=== PATIENT | male | born 1940 | race Caucasian/White ===

== ENCOUNTER → 2017-09-23 | Outpatient (CLI) | payer OTHER ==
[~2017-09-23] MED LIST: ASPI-496 PO; DHA PO; DONE10TA7 PO; FINA5TAB4 PO; FOLIC ACID PO; NAPR220T77 PO; NIAC500T4 PO; NITR100C PO; OMEG1CAP6 PO; RASA0.5T PO; SIMV20TA3 PO; TAMS0.4C2 PO; VITA150T PO
== END | disposition home or self-care (01) ==
LOC: CFH 06:56
PROVIDERS: ATTEND Internal Medicine Cardiovascular Disease
DX: I35.8 Other nonrheumatic aortic valve disorders (principal); I25.9 Chronic ischemic heart disease, unspecified; Z95.0 Presence of cardiac pacemaker; Z95.1 Presence of aortocoronary bypass graft
CPT/HCPCS: 93306

== ENCOUNTER 2018-05-15 10:24 | Inpatient (IN) | payer MEDICARE, OTHER ==
[~2018-05-15] VITALS: Ht 185.4 cm; Wt 92.5 kg
--- NOTE | 2018-05-15 10:43 | NUR ---
First contact with pt. Pt and his reports that for the past 2-3 days he has been having trouble swallowing and a cough after eating/drinking anything. Pt states he has a hx of this and has had previous "esophageal surgeries" related to this. Pt denies pain/fever/N/V. Pt's resp even and unlabored, speaking in full sentences, no resp distress noted. Pt positioned for comfort in bed, continuous oxygen and BP monitors applied, all safety measures observed.
[2018-05-15] MEDS ORDERED: SELE5TAB2 PO (10:57)
[2018-05-15] MEDS ORDERED: CARV3.122 PO (10:57)
[2018-05-15] MEDS ORDERED: SPIR25TA5 PO (10:57)
[2018-05-15] MEDS ORDERED: MELO7.5T31 PO (10:57)
[2018-05-15] MEDS ORDERED: DOXY25TA45 PO (10:57)
[2018-05-15] MEDS ORDERED: SODIUM CHLORIDE FLUSH 10ML SYR IVF ONE (11:00)
[2018-05-15 11:17] LABS: BASOPHILS # (AUTO) 0.06 x10^3/uL (0-0.1); BASOPHILS % (AUTO) 1 % (0-1); EOSINOPHILS # (AUTO) 0.24 x10^3/uL (0-0.4); EOSINOPHILS % (AUTO) 3 % (1-7); LYMPHOCYTES # (AUTO) 1.11 x10^3/uL (1-3.4); LYMPHOCYTES % (AUTO) 12 % (22-44); MD NO; MEAN CORPUSCULAR HEMOGLOBIN 32.3 pg (27.5-34.5); MEAN CORPUSCULAR HGB CONC 33.7 g/dL (33.2-36.2); MEAN CORPUSCULAR VOLUME 95.9 fL (81-97); MEAN PLATELET VOLUME 8.9 fL (7.4-10.4); MONOCYTES # (AUTO) 0.65 x10^3/uL (0.2-0.8); MONOCYTES % (AUTO) 7 % (2-9); NEUTROPHILS # (AUTO) 6.97 x10^3/uL (1.8-6.8); NEUTROPHILS % (AUTO) 77 % (42-75); PLATELET COUNT 168 x10^3/uL (130-400); RED BLOOD COUNT 4.48 x10^6/uL (4.38-5.82); RED CELL DISTRIBUTION WIDTH 14.4 % (9.4-14.8)
--- NOTE | 2018-05-15 11:22 | NUR ---
Pt in radiology at this time.
[2018-05-15 11:26] LABS: CHLORIDE 109 mmol/L (98-107)
[2018-05-15 11:42] LABS: ALBUMIN 3.6 g/dL (3.4-5.0); ALKALINE PHOSPHATASE 62 U/L (45-117); ANION GAP 8 mmol/L (5-15); BILIRUBIN,TOTAL 0.6 mg/dL (0.2-1.0); CALCIUM 8.6 mg/dL (8.5-10.1); CREATININE 1.54 mg/dL (0.7-1.3); TOTAL PROTEIN 7.6 g/dL (6.4-8.2); TROPONIN I < 0.015 ng/mL (0.000-0.045)
[2018-05-15 11:48] LABS: ALANINE AMINOTRANSFERASE 20 U/L (12-78)
--- NOTE | 2018-05-15 11:48 | NUR ---
Pt back from radiology, resting in bed, NADN, denies needs.
--- NOTE | 2018-05-15 12:05 | NUR ---
Pt ambulatory to bathroom with steady gait.
[2018-05-15] MEDS ORDERED: LOPERAMIDE 1 MG/5 ML, 10ML UDC PO SCH (12:30)
[2018-05-15] MEDS ORDERED: SODIUM CHLORIDE 0.9% 1,000 ML IV ONE (12:31)
[2018-05-15] MEDS ORDERED: LOPE2CAP PO (12:43)
--- NOTE | 2018-05-15 12:53 | NUR ---
[facility] at bedside to evaluate pt for admission.
--- NOTE | 2018-05-15 12:58 | NUR ---
Report called to Ermelinda ADAMES on oncology, floor ready for pt transport.
[2018-05-15] MEDS ORDERED: LABETALOL 5MG/ML, 20ML IVPush PRN (13:00)
[2018-05-15] MEDS ORDERED: SODIUM CHLORIDE FLUSH 10ML SYR IVF PRN (13:00)
[2018-05-15] MEDS ORDERED: PROMETHAZINE 25 MG/ML, 1ML IM PRN (13:00)
[2018-05-15] MEDS ORDERED: ONDANSETRON 2MG/ML, 2ML IVPush PRN (13:00)
[2018-05-15 13:12] LABS: PROTHROMBIN TIME 10.6 Seconds (9.6-11.5)
[2018-05-15 13:18] VITALS: BP 146/88
[2018-05-15 13:35] VITALS: BP 146/88
[2018-05-15] MEDS: D5%-0.45% NACL 1,000 ML IV SCH (13:47)
[2018-05-15 20:47] VITALS: BP 155/92
[2018-05-16] MEDS: D5%-0.45% NACL 1,000 ML IV SCH ×2 (01:27→10:44)
[2018-05-16 03:16] VITALS: BP 152/72
[2018-05-16 05:01] LABS: BASOPHILS # (AUTO) 0.05 x10^3/uL (0-0.1); BASOPHILS % (AUTO) 1 % (0-1); EOSINOPHILS # (AUTO) 0.36 x10^3/uL (0-0.4); EOSINOPHILS % (AUTO) 6 % (1-7); LYMPHOCYTES # (AUTO) 1.31 x10^3/uL (1-3.4); LYMPHOCYTES % (AUTO) 22 % (22-44); MD NO; MEAN CORPUSCULAR HEMOGLOBIN 32.3 pg (27.5-34.5); MEAN CORPUSCULAR HGB CONC 33.5 g/dL (33.2-36.2); MEAN CORPUSCULAR VOLUME 96.4 fL (81-97); MEAN PLATELET VOLUME 8.5 fL (7.4-10.4); MONOCYTES % (AUTO) 12 % (2-9); NEUTROPHILS # (AUTO) 3.44 x10^3/uL (1.8-6.8); NEUTROPHILS % (AUTO) 59 % (42-75); PLATELET COUNT 153 x10^3/uL (130-400); RED BLOOD COUNT 4.19 x10^6/uL (4.38-5.82)
[2018-05-16 05:06] LABS: ALBUMIN 3.2 g/dL (3.4-5.0); ANION GAP 6 mmol/L (5-15); CALCIUM 8.3 mg/dL (8.5-10.1); CHLORIDE 108 mmol/L (98-107)
[2018-05-16 05:09] LABS: ALANINE AMINOTRANSFERASE 22 U/L (12-78); ALKALINE PHOSPHATASE 54 U/L (45-117); BILIRUBIN,TOTAL 0.5 mg/dL (0.2-1.0); CREATININE 1.25 mg/dL (0.7-1.3); TOTAL PROTEIN 6.8 g/dL (6.4-8.2)
[2018-05-16] MEDS ORDERED: PROPOFOL 10 MG/ML, 20ML ONE (07:50)
[2018-05-16] MEDS ORDERED: METOPROLOL 1 MG/ML, 5ML IV PRN (09:00)
[2018-05-16] MEDS ORDERED: EPHEDRINE 50 MG/ML, 1ML IVPush PRN (09:00)
[2018-05-16] MEDS ORDERED: hydrALAzine 20 MG/ML, 1ML IV PRN (09:00)
[2018-05-16] MEDS ORDERED: FENTANYL PF 100 MCG/2ML IV PRN (09:00)
[2018-05-16] MEDS ORDERED: ONDANSETRON 2MG/ML, 2ML IV PRN (09:00)
[2018-05-16] MEDS ORDERED: ONDANSETRON ODT 8 MG PO PRN (09:00)
[2018-05-16 09:55] VITALS: BP 131/81
[2018-05-16] MEDS ORDERED: ONABOTULINUMTOXINA 100 UNITS ONE (11:06)
[2018-05-16 14:14] VITALS: BP 165/98
[2018-05-16] MEDS: LOPERAMIDE 2 MG CAPSULE PO SCH ×2 (15:35→20:18)
[2018-05-16 15:40] VITALS: BP 142/85
[2018-05-16 16:37] VITALS: BP 135/87
[2018-05-16 20:11] VITALS: BP 127/77
[2018-05-16] MEDS: DOXYLAMINE 25MG TABLET PO SCH (20:18)
[2018-05-16] MEDS: SIMVASTATIN 20 MG TABLET PO SCH (20:18)
[2018-05-16] MEDS: CARVEDILOL 3.125 MG TABLET PO SCH (20:18)
[2018-05-17 00:53] VITALS: BP 133/80
[2018-05-17] MEDS ORDERED: MULTIVITS,STRESS FORMULA 1 TABLET PO SCH (09:00)
[2018-05-17] MEDS: MULTIVITS,STRESS FORMULA 1 TABLET PO SCH (09:00)
[2018-05-17 09:45] VITALS: BP 166/92
[2018-05-17] MEDS: FINASTERIDE 5 MG TABLET PO SCH (09:47)
[2018-05-17] MEDS: SELEGILINE 5 MG CAPSULE PO SCH (09:47)
[2018-05-17] MEDS: CARVEDILOL 3.125 MG TABLET PO SCH ×2 (09:48→20:23)
[2018-05-17] MEDS: TAMSULOSIN 0.4 MG CAP.ER.24H PO SCH (09:48)
[2018-05-17] MEDS: SPIRONOLACTONE 25 MG TABLET PO SCH (09:48)
[2018-05-17] MEDS: LOPERAMIDE 2 MG CAPSULE PO SCH ×3 (09:48→20:25)
[2018-05-17] MEDS: DONEPEZIL 10 MG TABLET PO SCH (09:48)
[2018-05-17] MEDS: ASPIRIN 81 MG TABLET CHEW PO SCH (09:48)
[2018-05-17 13:20] VITALS: BP 129/76
--- NOTE | 2018-05-17 14:48 | NUR ---
REC NECTAR THICK LIQUIDS; advance diet per recommendations to ground. Swallow precaution sheet posted in room. Addendum: 05/17/18 at [address] Amended: Links added.
[2018-05-17] MEDS: D5%-0.45% NACL 1,000 ML IV SCH (15:00)
[2018-05-17 19:29] VITALS: BP 162/82
[2018-05-17] MEDS: SIMVASTATIN 20 MG TABLET PO SCH (20:23)
[2018-05-17] MEDS: DOXYLAMINE 25MG TABLET PO SCH (23:05)
[2018-05-18 02:00] VITALS: BP 149/83
[2018-05-18 08:10] VITALS: BP 168/96
[2018-05-18] MEDS: ASPIRIN 81 MG TABLET CHEW PO SCH (08:53)
[2018-05-18] MEDS: DONEPEZIL 10 MG TABLET PO SCH (08:53)
[2018-05-18] MEDS: MULTIVITS,STRESS FORMULA 1 TABLET PO SCH (08:53)
[2018-05-18] MEDS: SELEGILINE 5 MG CAPSULE PO SCH (08:53)
[2018-05-18] MEDS: TAMSULOSIN 0.4 MG CAP.ER.24H PO SCH (08:53)
[2018-05-18] MEDS: FINASTERIDE 5 MG TABLET PO SCH (08:53)
[2018-05-18] MEDS: CARVEDILOL 3.125 MG TABLET PO SCH ×2 (08:54→22:27)
[2018-05-18] MEDS: SPIRONOLACTONE 25 MG TABLET PO SCH (08:54)
[2018-05-18] MEDS: LOPERAMIDE 2 MG CAPSULE PO SCH ×3 (08:56→21:00)
[2018-05-18] MEDS: D5%-0.45% NACL 1,000 ML IV SCH (13:40)
[2018-05-18 14:55] VITALS: BP 143/87
[2018-05-18 18:55] VITALS: BP 148/89
[2018-05-18] MEDS: SIMVASTATIN 20 MG TABLET PO SCH (22:27)
[2018-05-18] MEDS: DOXYLAMINE 25MG TABLET PO SCH (22:27)
[2018-05-19 02:07] VITALS: BP 149/91
[2018-05-19 08:50] VITALS: BP 132/83
[2018-05-19] MEDS: SELEGILINE 5 MG CAPSULE PO SCH (08:52)
[2018-05-19] MEDS: LOPERAMIDE 2 MG CAPSULE PO SCH (08:52)
[2018-05-19] MEDS: DONEPEZIL 10 MG TABLET PO SCH (08:52)
[2018-05-19] MEDS: FINASTERIDE 5 MG TABLET PO SCH (08:52)
[2018-05-19] MEDS: MULTIVITS,STRESS FORMULA 1 TABLET PO SCH (08:52)
[2018-05-19] MEDS: ASPIRIN 81 MG TABLET CHEW PO SCH (08:52)
[2018-05-19] MEDS: D5%-0.45% NACL 1,000 ML IV SCH (08:53)
[2018-05-19] MEDS: TAMSULOSIN 0.4 MG CAP.ER.24H PO SCH (08:53)
[2018-05-19] MEDS: CARVEDILOL 3.125 MG TABLET PO SCH (08:53)
[2018-05-19] MEDS: SPIRONOLACTONE 25 MG TABLET PO SCH (08:53)
== END 2018-05-19 15:41 | disposition home health service (06) | DRG 391 ==
LOC: ED 12:30 → EDIP 12:31 → ED 12:39 → 3NW 13:11 → DCLOUNGE 05-19 15:23
PROVIDERS: ADMIT Internal Medicine; ATTEND Internal Medicine
PROC: BD11ZZZ Fluoroscopy of Esophagus (ICD-10-PCS; 2018-05-15)
PROC: 0D738ZZ Dilation of Lower Esophagus, Via Natural or Artificial Opening Endoscopic (ICD-10-PCS; 2018-05-16)
PROC: 3E0G8GC Introduction of Other Therapeutic Substance into Upper GI, Via Natural or Artificial Opening Endoscopic (ICD-10-PCS; principal; 2018-05-16 08:00)
DX: K22.0 Achalasia of cardia (principal); N17.0 Acute kidney failure with tubular necrosis; I13.0 Hypertensive heart and chronic kidney disease with heart failure and stage 1 through stage 4 chronic kidney disease, or unspecified chronic kidney disease; G31.83 Neurocognitive disorder with Lewy bodies; E86.0 Dehydration; R73.9 Hyperglycemia, unspecified; E78.00 Pure hypercholesterolemia, unspecified; E78.5 Hyperlipidemia, unspecified; G31.09 Other frontotemporal neurocognitive disorder; F02.80 Dementia in other diseases classified elsewhere, unspecified severity, without behavioral disturbance, psychotic disturbance, mood disturbance, and anxiety; I50.9 Heart failure, unspecified; N18.9 Chronic kidney disease, unspecified; I25.10 Atherosclerotic heart disease of native coronary artery without angina pectoris; Z95.1 Presence of aortocoronary bypass graft
CPT/HCPCS: 36415; 71045; 74220; 74230; 80053; 83880; 84484; 85025; 85610; 85730; 93005; 99285; G0378; J0585; J2704; C1725

== ENCOUNTER 2018-06-02 06:42 | Outpatient (CLI) | payer MEDICARE ==
[~2018-06-02 06:42] MED LIST changes: +CARV3.122 PO; +DOXY25TA45 PO; +LOPE2CAP PO; +MELO7.5T31 PO; +SELE5TAB2 PO; +SPIR25TA5 PO
== END 2018-06-02 23:59 | disposition home or self-care (01) ==
LOC: CVU 06:42
PROVIDERS: ATTEND Internal Medicine Cardiovascular Disease
DX: I08.3 Combined rheumatic disorders of mitral, aortic and tricuspid valves (principal); I25.810 Atherosclerosis of coronary artery bypass graft(s) without angina pectoris; E78.5 Hyperlipidemia, unspecified; Z95.1 Presence of aortocoronary bypass graft; Z95.0 Presence of cardiac pacemaker
CPT/HCPCS: C8929; Q9957

== ENCOUNTER 2018-10-19 07:56 | Emergency (ER) | payer MEDICARE ==
[~2018-10-19] VITALS: Ht 185.4 cm; Wt 95.6 kg
--- NOTE | 2018-10-19 08:39 | NUR ---
PT TO ROOM FROM LOBBY IN NAD
--- NOTE | 2018-10-19 09:00 | NUR ---
PT HAS BEEN COUGHING WHEN EATING AND DRINKING FOR SEVERAL DAYS.
--- NOTE | 2018-10-19 11:05 | NUR ---
AWAITING RADIOLOGY REPORT. AT BEDSIDE
--- NOTE | 2018-10-19 11:44 | NUR ---
RESTING WITH EYES CLOSED
[2018-10-19] MEDS ORDERED: SODIUM CHLORIDE 0.9% 1,000ML IVBOLUS ONE (12:00)
--- NOTE | 2018-10-19 12:00 | NUR ---
AMBULATED TO BATHROOM WITHOUT ASSISTANCE, STEADY GAIT
--- NOTE | 2018-10-19 12:23 | NUR ---
IV FLUIDS INFUSING PER ORDERS
--- NOTE | 2018-10-19 13:22 | NUR ---
ASSUMED CARE OF PT WHILE PRIMARY RN AT LUNCH. PT DISCHARGED WITH DISCHARGE INSTRUCTIONS AND FOLLOW UP INSTRUCTIONS.
[2018-10-19 13:23] VITALS: BP 147/95
== END 2018-10-19 13:25 | disposition home or self-care (01) ==
LOC: ED 12:01
DX: R13.14 Dysphagia, pharyngoesophageal phase (principal); R06.02 Shortness of breath; Z87.891 Personal history of nicotine dependence; Z95.1 Presence of aortocoronary bypass graft
CPT/HCPCS: 71046; 74220; 93005; 99283; J7030

== ENCOUNTER 2018-11-18 09:54 | Day surgery (SDC) | payer MEDICARE ==
[~2018-11-18] VITALS: Ht 188 cm; Wt 94.2 kg
[2018-11-18 10:58] VITALS: BP 125/87
== END 2018-11-18 13:55 | disposition home or self-care (01) ==
LOC: OUT 09:54
PROVIDERS: ATTEND Internal Medicine Gastroenterology
DX: K22.2 Esophageal obstruction (principal); K29.50 Unspecified chronic gastritis without bleeding; I11.0 Hypertensive heart disease with heart failure; I50.9 Heart failure, unspecified; Z95.0 Presence of cardiac pacemaker; Z79.899 Other long term (current) drug therapy; Z79.82 Long term (current) use of aspirin; Z87.891 Personal history of nicotine dependence
CPT/HCPCS: 36415; 43236; 43239; 43249; 80053; 88305; C1725; J0585; J2704; J7120